=== PATIENT | female | born 1975 | race Hispanic/Latino ===

== ENCOUNTER 2018-05-12 12:58 | Emergency (ER) | payer SELFPAY ==
[2018-05-12] MEDS ORDERED: MAGNES/ALUMIN/SIMET 30ML UCUP ONE (14:19)
[2018-05-12] MEDS ORDERED: NA CHLORIDE 0.9% 1,000 ML ONE (14:19)
[2018-05-12] MEDS ORDERED: LIDOCAINE VISCOUS 2% SOLN 15 ML UDC ONE (14:19)
[2018-05-12 14:20] LABS: Urine Bacteria <20 /HPF (<20)
[2018-05-12 14:21] LABS: Absolute Lymphocytes (CBC) 0.8 K/uL (0.7-4.9); Absolute Monocytes 0.4 K/uL (0.1-1.3); Absolute Neutrophil 6.4 K/uL (1.8-8.0); Basophils % 0.5 % (0-1.3); Eosinophils % 0.3 % (0-4.4); Hematocrit 36.7 % (36.0-45.0); Lymphocytes % 10.6 % (15.3-44.8); MCH 31.1 pg (27.0-35.0); MCV 90.6 fL (80-100); MPV 8.8 fL (7.6-11.3); Monocytes % 4.9 % (3.3-12.3); RBC Red Blood Cell Count 4.05 M/uL (3.86-4.86)
[2018-05-12 14:21] LABS: Urine Culture Reflex Order NOT NEEDED; Urine Mucus 1+ /HPF (NONE SEEN)
[2018-05-12 14:36] LABS: Albumin 4.3 g/dL (3.4-5.0); Bilirubin Direct 0.1 mg/dL (0-0.2); Bilirubin Total 0.5 mg/dL (0.2-1.0); Potassium 3.5 mmol/L (3.5-5.1)
[2018-05-12 14:49] LABS: Urine Blood 3+ (NEG); Urine Glucose NEGATIVE (NEG); Urine Protein NEGATIVE (NEG); Urine Specific Gravity <1.005 (1.005-1.030); Urine pH 5.5 (5.0-7.0)
[2018-05-12] MEDS ORDERED: DIAZEPAM 5 MG TABLET ONE (15:03)
--- NOTE | 2018-05-12 15:04 | RAD REPORT ---
EXAM DESCRIPTION: US - Abdomen Exam Limited - 05/12/2018 2:27 pm CLINICAL HISTORY: Abdominal pain. COMPARISON: None. FINDINGS: The gallbladder wall is not thickened. A gallstone is not seen. The biliary tree is normal caliber. IMPRESSION: Unremarkable gallbladder ultrasound.
--- NOTE | 2018-05-12 15:10 | RAD REPORT ---
EXAM DESCRIPTION: Miguel Angel Single View05/12/2018 2:45 pm CLINICAL HISTORY: sob COMPARISON: none FINDINGS: The lungs appear clear of acute infiltrate. The heart is normal size IMPRESSION: No acute abnormalities displayed
--- NOTE | 2018-05-12 15:32 | EKG ---
Test Date: 2018-05-12 Test Time: 13:12:27 Podopediatrician: TIKI MEASUREMENT RESULTS: Intervals: Rate: 100 ME: 134 QRSD: 82 QT: 346 QTc: 446 [place]: P: 76 ME: 134 QRS: 63 T: 35 INTERPRETIVE STATEMENTS: Normal sinus rhythm Cannot rule out Anterior infarct, age undetermined Abnormal ECG No previous ECG available for comparison Electronically Signed On 05-12-18 15:32:26 CDT by Scotty Nelson
--- NOTE | 2018-05-12 16:04 | ER ---
Nurse's Notes [facility] Name: Delroes Ennis Age: 42 yrs Sex: Female : 1975 Arrival Date: 05/12/2018 Time: 13:01 Bed 15 Private MD: Unknown, Unknown Diagnosis: Gastritis, unspecified;Anxiety disorder, unspecified Presentation: 05/12 13:05 Presenting complaint: Patient states: im short of breath, it started today, i fell like hj im anxious and i feel pressure on the middle of my stomach; sometimes on my chest; denies nausea and vomiting;. Transition of care: patient was not received from another setting of care. Onset of symptoms was May 12, 2018. Risk Assessment: Do you want to hurt yourself or someone else? Patient reports no desire to harm self or others. Initial Sepsis Screen: Does the patient meet any 2 criteria? No. Patient's initial sepsis screen is negative. Does the patient have a suspected source of infection? No. Patient's initial sepsis screen is negative. Care prior to arrival: None. 13:05 Method Of Arrival: Ambulatory 13:05 Acuity: JAILYN 3 hj Triage Assessment: 13:08 General: Appears in no apparent distress. uncomfortable, Behavior is calm, cooperative, hj appropriate for age. Respiratory: Reports shortness of breath Onset: The symptoms/episode began/occurred gradually, the patient has mild shortness of breath. 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 - Social history:: Smoking status: Patient/guardian denies using tobacco, Patient/guardian denies using alcohol. - Ebola Screening: : Patient negative for fever greater than or equal to 101.5 degrees Fahrenheit, and additional compatible Ebola Virus Disease symptoms Patient denies exposure to infectious person Patient denies travel to an Ebola-affected area in the 21 days before illness onset. - Family history:: not pertinent. - Hospitalizations: : No recent hospitalization is reported. Screenin:08 Abuse screen: Denies threats or abuse. Denies injuries from another. Nutritional hj screening: No deficits noted. Tuberculosis screening: No symptoms or risk factors identified. Fall Risk None identified. Assessment: 13:08 Pain: Complains of pain in epigastric area. Cardiovascular: Rhythm is regular. hj Respiratory: Airway is patent Respiratory effort is even, unlabored, Respiratory pattern is regular, symmetrical, Breath sounds are clear. 13:45 General: Appears uncomfortable, slender, Behavior is cooperative, anxious. Neuro: Level ae1 of Consciousness is awake, alert, obeys commands, Oriented to person, place, time, situation. Cardiovascular: Heart tones S1 S2 present Patient's skin is warm and dry. GI: No signs and/or symptoms were reported involving the gastrointestinal system. GI: Abdomen is round Bowel sounds present X 4 quads. Abd is soft and non tender. GI: Reports lower abdominal pain, nausea. : No signs and/or symptoms were reported regarding the genitourinary system. EENT: No signs and/or symptoms were reported regarding the EENT system. Derm: Skin is pale. Musculoskeletal: No signs and/or symptoms reported regarding the musculoskeletal system. 15:10 Reassessment: Patient appears calmer. Respirations are slower and unlabored. ae1 Vital Signs: 13:09 BP 133 / 73; Pulse 118; Resp 20; Temp 98.7(O); Pulse Ox 100% on R/A; Weight 67.59 kg; hj Height 5 ft. 5 in. (165.10 cm); Pain 10/10; 15:07 BP 128 / 74; Pulse 98; Resp 21; Pulse Ox 98% on R/A; ae1 13:09 Body Mass Index 24.79 (67.59 kg, 165.10 cm) ED Course: 13:01 Patient arrived in ED. jb7 13:01 Unknown, Unknown is Private Physician. jb7 13:07 Triage completed. hj 13:09 Arm band placed on right wrist. hj 13:46 Ochoa Lemus MD is Attending Physician. rn 13:57 Jah Doss, MELISSA is Primary Nurse. ae1 14:11 Initial lab(s) drawn, by nh, sent to lab. Urine collected: clean catch specimen, clear. 5 Inserted saline lock: 22 gauge in right antecubital area, using aseptic technique. Blood collected. 14:13 Basic Metabolic Panel Sent. 5 14:13 CBC with Diff Sent. mh5 14:13 Hepatic Function Sent. mh5 14:13 Lipase Sent. mh5 14:13 Urine Microscopic Only Sent. mh5 14:14 Patient has correct armband on for positive identification. Placed in gown. Bed in low mh5 position. Call light in reach. Side rails up X 1. Adult w/ patient. Pulse ox on. NIBP on. 14:27 US Abdomen Limited In Process Unspecified. EDMS 14:36 EKG done, by nanoscience technician. reviewed by Ochoa Lemus MD. 3 14:44 XRAY Chest (1 view) In Process Unspecified. EDMS 14:44 X-ray completed. Portable x-ray completed in exam room. Patient tolerated procedure jb2 well. 16:30 Assist provider with bone marrow aspiration. IV discontinued, intact, bleeding ae1 controlled, No redness/swelling at site. Pressure dressing applied. Administered Medications: 14:45 Drug: NS 0.9% 1000 ml Route: IV; Rate: 1000 ml; Site: right antecubital; ae1 14:46 Drug: GI Cocktail without - (Maalox Suspension 30 ml, Lidocaine Liquid 2 % 15 ae1 ml) Route: PO; 15:04 Follow up: Response: Other; After drinking medication, patient became anxious and ae1 stated she felt like "I can't breathe." O2 sautration at 98%, no visible swelling in throat, lung sounds clear. Provider notified, new orders received. 15:02 Drug: Valium 5 mg Route: PO; ae1 15:48 Follow up: Response: Anxiety decreased ae1 Intake: Outcome: 16:03 Discharge ordered by . rn 16:30 Discharged to home ambulatory, with family. ae1 16:30 Condition: stable 16:30 Condition: improved 16:30 Discharge instructions given to patient, Instructed on discharge instructions, follow up and referral plans. Demonstrated understanding of instructions, Prescriptions given X 1. 16:43 Patient left the ED. ae1 Signatures: Dispatcher [employer] EDMS Lenny Hensley jb2 Ochoa Lemus MD MD rn Joaquin, Henry, RN RN hj Elliott, Andrea, RN RN ae1 Leanna Harris 5 Huang Gregg jb7 Cyndy Mendez 3 Corrections: (The following items were deleted from the chart) 15:12 15:08 Reassessment: ae1 ae1 15:14 15:10 Reassessment: Patient appears calmer. ae1 ae1
--- NOTE | 2018-05-12 16:04 | EDPHYS ---
Physician Documentation [facility] Name: Delores Ennis Age: 42 yrs Sex: Female : 1975 Arrival Date: 05/12/2018 Time: 13:01 Bed 15 Private MD: Unknown, Unknown ED Physician Ochoa Lemus HPI: 05/12 14:06 This 42 yrs old Female presents to ER via Ambulatory with complaints of abd rn pain. 14:06 The patient presents with abdominal pain in the epigastric area. Onset: The rn symptoms/episode began/occurred at an unknown time. The symptoms radiate to chest. Associated signs and symptoms: Pertinent positives: nausea. Modifying factors: The symptoms are alleviated by antacids, the symptoms are aggravated by food. Severity of pain: At its worst the pain was moderate in the emergency department the pain is unchanged. The patient has experienced similar episodes in the past. Reports epigastric abd pain, chronic, worse this AM, is from out of town, states diagnosis of gastritis in past, similar to previous episodes, worse with food, radiates to chest, makes her feel anxious. . 14:06 States previous u/s in past has shown clear gallbladder.. 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 - Social history:: Smoking status: Patient/guardian denies using tobacco, Patient/guardian denies using alcohol. - Ebola Screening: : Patient negative for fever greater than or equal to 101.5 degrees Fahrenheit, and additional compatible Ebola Virus Disease symptoms Patient denies exposure to infectious person Patient denies travel to an Ebola-affected area in the 21 days before illness onset. - Family history:: not pertinent. - Hospitalizations: : No recent hospitalization is reported. ROS: 14:06 Constitutional: Negative for fever, chills, and weight loss, Eyes: Negative for injury, rn pain, redness, and discharge, Neck: Negative for injury, pain, and swelling, Cardiovascular: Negative for chest pain, palpitations, and edema, Respiratory: Negative for cough, wheezing, and pleuritic chest pain, Abdomen/GI: Negative for vomiting, diarrhea, and constipation, MS/Extremity: Negative for injury and deformity, Skin: Negative for injury, rash, and discoloration, Neuro: Negative for headache, weakness, numbness, tingling, and seizure. Exam: 14:06 Constitutional: This is a well developed, well nourished patient who is awake, alert, rn and in no acute distress. Head/Face: Normocephalic, atraumatic. Eyes: Pupils equal round and reactive to light, extra-ocular motions intact. Lids and lashes normal. Conjunctiva and sclera are non-icteric and not injected. Cornea within normal limits. Periorbital areas with no swelling, redness, or edema. Cardiovascular: tachycardic, regular, no murmur Respiratory: Lungs have equal breath sounds bilaterally, clear to auscultation and percussion. No rales, rhonchi or wheezes noted. No increased work of breathing, no retractions or nasal flaring. Abdomen/GI: soft, mild epigastric abd tenderness, no rebound MS/ Extremity: Pulses equal, no cyanosis. Neurovascular intact. Full, normal range of motion. Equal circumference. Neuro: Awake and alert, GCS 15, oriented to person, place, time, and situation. Cranial nerves II-XII grossly intact. Motor strength 5/5 in all extremities. Sensory grossly intact. Vital Signs: 13:09 BP 133 / 73; Pulse 118; Resp 20; Temp 98.7(O); Pulse Ox 100% on R/A; Weight 67.59 kg; hj Height 5 ft. 5 in. (165.10 cm); Pain 10/10; 15:07 BP 128 / 74; Pulse 98; Resp 21; Pulse Ox 98% on R/A; ae1 13:09 Body Mass Index 24.79 (67.59 kg, 165.10 cm) hj MDM: 13:46 Patient medically screened. rn 16:00 Differential diagnosis: cholecystitis, Cholelithiasis, gastritis, gastroesophageal rn reflux disease, non-specific abd pain, pancreatitis, Peptic Ulcer Disease. Data reviewed: vital signs, nurses notes, lab test result(s), radiologic studies, ultrasound, and as a result, I will discharge patient. Counseling: I had a detailed discussion with the patient and/or guardian regarding: the historical points, exam findings, and any diagnostic results supporting the discharge/admit diagnosis, lab results, radiology results, the need for outpatient follow up, to return to the emergency department if symptoms worsen or persist or if there are any questions or concerns that arise at home. 16:01 Response to treatment: the patient's symptoms have markedly improved after treatment, rn and as a result, I will discharge patient. Special discussion: I discussed with the patient/guardian in detail that at this point there is no indication for admission to the hospital. It is understood, however, that if the symptoms persist or worsen the patient needs to return immediately for re-evaluation. ED course: Pt improved, sleeping comfortably, w/u negative, recommend addition of zantac to her omeprazole and f/u with her GI as planned for endoscopy. . 05/12 13:56 Order name: Basic Metabolic Panel; Complete Time: 14:53 rn 05/12 13:56 Order name: CBC with Diff; Complete Time: 14:53 rn 05/12 13:56 Order name: Hepatic Function; Complete Time: 14:53 rn 05/12 13:56 Order name: Lipase; Complete Time: 14:53 rn 05/12 13:56 Order name: Urine Microscopic Only; Complete Time: 14:53 rn 05/12 14:05 Order name: Troponin (emerg Dept Use Only); Complete Time: 14:53 rn 05/12 13:10 Order name: EKG; Complete Time: 13:11 hj 05/12 14:05 Order name: US Abdomen Limited; Complete Time: 15:16 rn 05/12 14:05 Order name: XRAY Chest (1 view); Complete Time: 15:16 rn 05/12 14:42 Order name: Urine Dipstick--Ancillary (enter results); Complete Time: 14:53 ag 05/12 14:42 Order name: Urine --Ancillary (enter results); Complete Time: 14:53 ag 05/12 13:56 Order name: Urine Test (obtain specimen); Complete Time: 14:13 rn 05/12 13:56 Order name: IV Saline Lock; Complete Time: 14:13 rn 05/12 13:56 Order name: Labs collected and sent; Complete Time: 14:13 rn 05/12 13:56 Order name: Urine Dipstick-Ancillary (obtain specimen); Complete Time: 14:13 rn 05/12 14:05 Order name: EKG - Nurse/Tech; Complete Time: 15:48 rn Administered Medications: 14:45 Drug: NS 0.9% 1000 ml Route: IV; Rate: 1000 ml; Site: right antecubital; ae1 14:46 Drug: GI Cocktail without - (Maalox Suspension 30 ml, Lidocaine Liquid 2 % 15 ae1 ml) Route: PO; 15:04 Follow up: Response: Other; After drinking medication, patient became anxious and ae1 stated she felt like "I can't breathe." O2 sautration at 98%, no visible swelling in throat, lung sounds clear. Provider notified, new orders received. 15:02 Drug: Valium 5 mg Route: PO; ae1 15:48 Follow up: Response: Anxiety decreased ae1 Disposition: 05/12/18 16:03 Discharged to Home. Impression: Gastritis, unspecified, Anxiety disorder, unspecified. - Condition is Stable. - Discharge Instructions: Gastritis, Adult, Generalized Anxiety Disorder. - Prescriptions for Valium 2 mg Oral Tablet - take 1 tablet by ORAL route every 8-12 hours As needed; 5 tablet. - Medication Reconciliation Form, Thank You Letter, Antibiotic Education, Prescription Opioid Use form. - Follow up: Private Physician; When: As needed; Reason: Recheck today's complaints, Re-evaluation by your physician. - Problem is new. - Symptoms have improved. Signatures: Dispatcher [employer] EDMS Ochoa Lemus MD MD rn Joaquin, Henry, RN RN Jah Doss RN RN ae1 Corrections: (The following items were deleted from the chart) 14:10 14:06 Constitutional: Negative for fever, chills, and weight loss, rn rn 16:43 16:03 05/12/2018 16:03 Discharged to Home. Impression: Gastritis, unspecified; Anxiety ae1 disorder, unspecified. Condition is Stable. Forms are Medication Reconciliation Form, Thank You Letter, Antibiotic Education, Prescription Opioid Use. Follow up: Private Physician; When: As needed; Reason: Recheck today's complaints, Re-evaluation by your physician. Problem is new. Symptoms have improved. rn
== END 2018-05-12 16:43 | disposition home or self-care (01) ==
LOC: ER 12:58
DX: K29.70 Gastritis, unspecified, without bleeding (principal); F41.9 Anxiety disorder, unspecified; K21.9 Gastro-esophageal reflux disease without esophagitis
CPT/HCPCS: 36415; 71045; 76705; 80048; 80076; 81003; 81015; 81025; 83690; 84484; 85025; 93005; 99285; J7030